=== PATIENT | female | born 1930 | race Caucasian/White ===

== ENCOUNTER 2016-08-17 12:23 | Emergency (ER) | payer OTHER ==
[~2016-08-17] VITALS: Ht 154.9 cm; Wt 54.4 kg
[2016-08-17 12:43] VITALS: BP 128/53
[2016-08-17] MEDS ORDERED: GLIP10TA3 PO (12:47)
[2016-08-17] MEDS ORDERED: TRA200 PO (12:47)
[2016-08-17] MEDS ORDERED: [UNRECOGNIZED DRUG - CODE] PO (12:47)
[2016-08-17] MEDS ORDERED: CLON0.3T23 PO (12:47)
--- NOTE | 2016-08-17 13:30 | NUR ---
Patient to bed 06.
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
--- NOTE | 2016-08-17 13:32 | NUR ---
Dr. Pichardo evaluating patient at bedside.
[2016-08-17 14:09] LABS: HEMATOCRIT 26.6 % (36-48); HEMOGLOBIN 8.4 g/dL (12.0-16.0)
--- NOTE | 2016-08-17 14:37 | NUR ---
BP152/39, P 63; NO C/O HEADACHE OR DIZZY. NOTIFIED ER MD DR ROUSE. AWARE.
[2016-08-17 14:45] VITALS: BP 152/38
--- NOTE | 2016-08-17 14:45 | NUR ---
Patient discharged with BP152/39; PT DENIES ANY HEADACHE OR DIZINESS; MD DR ROUSE NOTIFIED; AWARE. Written and verbal after care instructions given and explained. Patient verbalized understanding. Wheel Chair Assisted with to car. All questions addressed prior to discharge. Advised to follow up with PMD.
== END 2016-08-17 14:45 | disposition home or self-care (01) ==
LOC: MED 12:23
DX: S91.011A Laceration without foreign body, right ankle, initial encounter (principal); D53.9 Nutritional anemia, unspecified; E11.9 Type 2 diabetes mellitus without complications; I10 Essential (primary) hypertension; W20.8XXA Other cause of strike by thrown, projected or falling object, initial encounter; Y93.89 Activity, other specified; Y92.89 Other specified places as the place of occurrence of the external cause; Y99.8 Other external cause status
CPT/HCPCS: 12001; 36415; 82948; 85018; 99283

== ENCOUNTER 2017-05-04 13:30 | Emergency (ER) | payer OTHER ==
[~2017-05-04] VITALS: Ht 149.9 cm; Wt 45.4 kg
[2017-05-04 13:30] VITALS: BP 99/57
[~2017-05-04 13:30] MED LIST: APR10 PO; CLON0.3T23 PO; GLIP10TA3 PO; TRA200 PO
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
--- NOTE | 2017-05-04 14:06 | NUR ---
SPOKE WITH TIEN AT [facility]; DEPUTY TO CALL BACK WITH [facility] CASE NUMBER.
--- NOTE | 2017-05-04 14:28 | NUR ---
SPOKE WITH MITZI AT [facility]; CASE # [id number]; PER ARNOLDO CARTAGENA TO RELEASE BODY.
--- NOTE | 2017-05-04 14:39 | NUR ---
SPOKE WITH PT'S ATTENDING PHYSICIAN SUPRIYA ECHEVARRIA; DR. KIM STATES WILL SIGN PT'S CERTIFICATE.
--- NOTE | 2017-05-04 15:51 | NUR ---
SPOKE WITH ANTOINETTEUTTomeka AMBROSE; BODY RELEASED AT THIS TIME; CASE # [id number]
--- NOTE | 2017-05-04 16:40 | NUR ---
PT TAKEN TO ROOM 127 VIA [facility] ACCOMPANIED BY NITHIN CHILDS AND EMT MAHAD. PER GRUPO FROM [facility], PT TO BE PICKED UP IN APPROXIMATELY 2 HOURS.
--- NOTE | 2017-05-04 17:36 | NUR ---
PT BEING PICKED UP BY [facility] AT THIS TIME; PAPER WORK SIGNED; FAMILY AT BEDSIDE.
== END 2017-05-04 13:39 | disposition expired ==
LOC: MED 13:30
DX: I46.9 Cardiac arrest, cause unspecified (principal); J44.9 Chronic obstructive pulmonary disease, unspecified; E11.9 Type 2 diabetes mellitus without complications; I10 Essential (primary) hypertension
CPT/HCPCS: 92950; 99285